=== PATIENT | female | born 1950 | race African-American/Black ===

== ENCOUNTER 2022-02-11 09:23 | Day surgery (SDC) | payer OTHER ==
[2022-02-08 10:46] VITALS: BMI 29.0
[2022-02-11 11:09] VITALS: TEMP 98
[2022-02-11 11:43] VITALS: BP 122/66; PULSE 59
== END 2022-02-11 11:35 | disposition home or self-care (01) ==
LOC: FASU-ENDO 09:23
PROVIDERS: ATTEND Internal Medicine Gastroenterology
PROC: 0DJD8ZZ Inspection of Lower Intestinal Tract, Via Natural or Artificial Opening Endoscopic (ICD-10-PCS; principal; 2022-02-11 10:26)
DX: Z12.11 Encounter for screening for malignant neoplasm of colon (principal)
CPT/HCPCS: 82962